=== PATIENT | female | born 1995 | race African-American/Black ===

== ENCOUNTER 2016-11-30 15:23 | Emergency (ER) | payer MEDICAID ==
[~2016-11-30] VITALS: Ht 175.3 cm; Wt 122.5 kg
[~2016-11-30 15:23] MED LIST: CYCLOBENZAPRINE10 MG ORAL; IBUPROFEN800 MG ORAL
--- NOTE | 2016-11-30 15:52 | Emergency Room Report ---
History of Present Illness General Chief Complaint: Flu Like Symptoms Source: Patient Present Illness HPI Patient is a 21-year-old female brought in by self for increased cough and nasal congestion. Patient gradual onset of symptoms were approximately one month. Patient denied any fever. She reported having some increased redness to her left eye beginning yesterday. 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 The patient been having some sore throat. She denied any leg pain or swelling. She reported having some right ear fullness. Allergies: Coded Allergies: SULFA (SULFONAMIDE ANTIBIOTICS) (Unverified Allergy, Unknown, 11/09/14) Patient History Past Medical History: see triage record Last Menstrual Period: nov 11, 2016 Now: No Reviewed Nursing Documentation: PMH: Agreed, PSxH: Agreed Nursing Documentation-PMH Past Medical History: No History, Except For Review of Systems All Other Systems: negative except mentioned in HPI Physical Exam Vital Signs Date Time Temp Pulse Resp B/P Pulse Ox O2 Delivery O2 Flow Rate FiO2 11/30/16 15:36 99.0 87 15 127/85 98 Room Air Sp02 EP Interpretation: reviewed, normal General Appearance: normal inspection, well appearing, no apparent distress, alert, GCS 15 Head: atraumatic Eyes: bilateral eye PERRL, bilateral eye other - left eye conjunctival injection ENT: normal ENT inspection, hearing grossly normal, normal voice Neck: normal inspection, full range of motion, supple, no bony tend Respiratory: normal inspection, lungs clear, normal breath sounds, no respiratory distress, no retraction, no wheezing Cardiovascular #1: regular rate, rhythm, no edema Gastrointestinal: normal inspection, normal bowel sounds, non tender, soft, no guarding, no hernia Genitourinary: no CVA tenderness Musculoskeletal: normal inspection, back normal, normal range of motion Neurologic: normal inspection, alert, oriented x3, responsive, 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 Patient's benign exam and does not appear to require any further imaging or laboratory testing at this time. The patient was advised to return off of work. The patient is to have a viral bronchitis. The patient does not appear to require antibiotics at this time . The patient is advised to follow up with primary care doctor in 1-2 days. Patient is advised to return if any worsening condition or if any changes in status that are concerning. Laboratory Tests Test 11/30/16 15:49 Urine Color Pale yellow Urine Appearance Clear Urine pH 5 (4.5-8.0) Urine Specific [place] 1.010 (1.005-1.035) Urine Protein Negative (NEGATIVE) Urine Glucose (UA) Negative (NEGATIVE) Urine Ketones Negative (NEGATIVE) Urine Occult Blood Negative (NEGATIVE) Urine Nitrite Negative (NEGATIVE) Urine Bilirubin Negative (NEGATIVE) Urine Urobilinogen Normal MG/DL (0.0-1.0) Urine Leukocyte Esterase Negative (NEGATIVE) Urine HCG, Qualitative Negative Last Vital Signs Date Time Temp Pulse Resp B/P Pulse Ox O2 Delivery O2 Flow Rate FiO2 11/30/16 15:36 99.0 87 15 127/85 98 Room Air Status: unchanged Disposition: HOME, SELF-CARE Condition: Stable Scripts Guaifenesin* (ADULT WAL-TUIN*) 100 Mg/5 Ml Liquid 5 ML ORAL Q4H, #120 ML Prov: Bereket Matthew 11/30/16 Dextran 70/Hypromellose (ARTIFICIAL TEARS EYE DROPS*) 15 Ml Drops 1 DROP LEFT EYE Q4HR, #15 ML 0 Refills Prov: Bereket Matthew 11/30/16 Loratadine (CLARITIN) 10 Mg Capsule 10 MG ORAL DAILY, #20 CAP Prov: Bereket Matthew 11/30/16 Bereket Matthew Nov 30, 2016 15:52
[2016-11-30 16:20] LABS: APPEARANCE,URINE CLEAR; KETONES,URINE NEGATIVE (NEGATIVE); LEUKOCYTE ESTERASE ,URINE NEGATIVE (NEGATIVE); NITRITE,URINE NEGATIVE (NEGATIVE); PH,URINE 5 (4.5-8.0); PROTEIN,URINE NEGATIVE (NEGATIVE); UROBILINOGEN,URINE NORMAL MG/DL (0.0-1.0)
[2016-11-30] MEDS ORDERED: ARTIFICIAL TEAR15 ML LEFT EYE (16:26)
[2016-11-30] MEDS ORDERED: ADULT WAL-100 MG/5 M ORAL (16:26)
[2016-11-30] MEDS ORDERED: CLARITIN10 M2 ORAL (16:26)
[2016-11-30 16:30] VITALS: BP 121/79
[2016-11-30 16:31] VITALS: BP 121/79
[2017-01-07] MEDS ORDERED: TYLENOL EXTRA500 MG ORAL (17:20)
== END 2016-11-30 16:32 | disposition home or self-care (01) ==
LOC: EMR 15:55
DX: J20.8 Acute bronchitis due to other specified organisms (principal); Z88.2 Allergy status to sulfonamides
CPT/HCPCS: 81003; 81025; 99284

== ENCOUNTER 2017-01-02 08:49 | Emergency (ER) | payer MEDICAID ==
[~2017-01-02] VITALS: Ht 175.3 cm; Wt 131.5 kg
[~2017-01-02 08:49] MED LIST changes: +ADULT WAL-100 MG/5 M ORAL; +ARTIFICIAL TEAR15 ML LEFT EYE; +CLARITIN10 M2 ORAL
[2017-01-02] MEDS ORDERED: NAPROSYN500 M1 ORAL (09:18)
[2017-01-02 09:39] VITALS: BP 124/76
[2017-01-02] MEDS ORDERED: CLINDAMYCIN HC300 MG ORAL (09:39)
[2017-01-02 09:45] VITALS: BP 124/76
--- NOTE | 2017-01-02 11:22 | Emergency Room Report ---
History of Present Illness General Chief Complaint: Skin Rash/Abscess Source: Patient Present Illness HPI 21 yo F presents to ED c/o pain/swelling to her perineal area x 3 days. states pain is throbbing, 8/10, non radiating. no other aggravating or relieving factors. Denies any fevers or chills. Denies drainage. Denies any vaginal discharge. Denies dysuria or hematuria. Denies any other associated symptoms Allergies: Coded Allergies: SULFA (SULFONAMIDE ANTIBIOTICS) (Unverified Allergy, Unknown, 11/09/14) Patient History Past Medical History: none Past Surgical History: none Pertinent Family History: none Social History: Denies: alcohol use, drug use, smoking Last Menstrual Period: Now: No : 0 Para: 0 Immunizations: UTD Reviewed Nursing Documentation: PMH: Agreed, PSxH: Agreed Review of Systems All Other Systems: negative except mentioned in HPI Physical Exam Vital Signs Date Time Temp Pulse Resp B/P Pulse Ox O2 Delivery O2 Flow Rate FiO2 01/02/17 09:13 98.8 87 16 124/76 100 Room Air Sp02 EP Interpretation: reviewed, normal General Appearance: no apparent distress, alert, GCS 15, non-toxic, obese Head: normocephalic Eyes: bilateral eye PERRL, bilateral eye normal inspection ENT: normal ENT inspection Neck: normal inspection Respiratory: normal inspection Cardiovascular #1: normal inspection Gastrointestinal: normal inspection Rectal: deferred Genitourinary: no CVA tenderness Musculoskeletal: normal inspection Neurologic: alert, oriented x3, responsive, motor strength/tone normal, sensory intact, speech normal Psychiatric: judgement/insight normal, memory normal, mood/affect normal, no suicidal/homicidal ideation Skin: other - induration/erythema to R lower buttock. no fluctuance. no discharge. Lymphatic: normal inspection Medical Decision Making Diagnostic Impression: Primary Impression: Perineal abscess ER Course Hospital Course 21-year-old F presents to ED s/p swelling pain to perineal area differential - abscess, cellulitis, fistula Clinical course Patient placed on stretcher. After initial history exam reveals a obese female in no acute distress. On exam (underwriting sales representative present) there is an area of induration and swelling to the right lower buttock close to the perineal area. No fluctuance. No discharge. I do not believe I and D indicated at this time; will treat conservatively with warm soaks and antibiotic Diagnosis - perineal abscess Stable and discharged to home with prescription for clindamycin. warm soaks tid. wound Care instructions given. Followup with PMD. Return to ED if any signs of infection develop Last Vital Signs Date Time Temp Pulse Resp B/P Pulse Ox O2 Delivery O2 Flow Rate FiO2 01/02/17 09:45 98.8 16 124/76 100 Room Air 01/02/17 09:13 87 Status: improved Disposition: HOME, SELF-CARE Condition: Stable Scripts Clindamycin Hcl (CLINDAMYCIN HCL) 300 Mg Capsule 300 MG ORAL THREE TIMES A DAY, #21 CAP Prov: GLORIA NOGUERA M.D. 01/02/17 Referrals: [facility],REF (PCP) Patient Instructions: Perianal Abscess Additional Instructions: warm soaks. take antibiotics as directed GLORIA NOGUERA M.D. Jan 02, 2017 11:22
[2017-01-07] MEDS ORDERED: TYLENOL EXTRA500 MG ORAL (17:20)
== END 2017-01-02 09:45 | disposition home or self-care (01) ==
LOC: EMR 09:30
DX: L02.215 Cutaneous abscess of perineum (principal); Z88.2 Allergy status to sulfonamides
CPT/HCPCS: 99283

== ENCOUNTER 2017-01-04 15:42 | Emergency (ER) | payer MEDICAID ==
[~2017-01-04] VITALS: Ht 175.3 cm; Wt 131.5 kg
[~2017-01-04 15:42] MED LIST changes: +CLINDAMYCIN HC300 MG ORAL; +NAPROSYN500 M1 ORAL
[2017-01-04 16:01] VITALS: BP 119/79
[2017-01-04] MEDS ORDERED: Morphine Sulfate 4mg/ml Inj IM ONE (16:15)
[2017-01-04] MEDS ORDERED: Morphine Sulfate 2mg/ml Inj IVP ONE (17:00)
[2017-01-04] MEDS ORDERED: VANCOMYCIN IVPB ONE (17:28)
[2017-01-04] MEDS ORDERED: [UNRECOGNIZED DRUG - OTHER] IVPB ONE (17:28)
[2017-01-04] MEDS ORDERED: Vancomycin 1.5 GM in D5W 325 ML IVPB SCH (17:30)
[2017-01-04 17:35] LABS: BASOPHILS % (AUTO) 1.2 % (0.0-2.0); EOSINOPHILS % (AUTO) 1.4 % (0.0-3.0); LYMPHOCYTES % (AUTO) 23.6 % (20.0-45.0); MEAN CORPUSCULAR HEMOGLOBIN 27.1 PG (27.0-31.0); MEAN CORPUSCULAR HGB CONC 32.3 G/DL (32.0-36.0); MEAN CORPUSCULAR VOLUME 84 FL (80-99); MEAN PLATELET VOLUME 9.8 FL (6.5-10.1); MONOCYTES % (AUTO) 6.7 % (1.0-10.0); PLATELET COUNT 184 K/UL (150-450); RED BLOOD COUNT 4.36 M/UL (4.20-5.40); RED CELL DISTRIBUTION WIDTH 13.4 % (11.6-14.8); WHITE BLOOD COUNT 10.5 K/UL (4.8-10.8)
[2017-01-04] MEDS ORDERED: Vancomycin 1gm inj IVPB ONE (17:37)
[2017-01-04 17:47] LABS: ANION GAP 13 (5-15); CARBON DIOXIDE 24 mEQ/L (20-30); CHLORIDE 102 mEQ/L (98-107); CREATININE 0.7 mg/dL (0.5-0.9); GLOMERULAR FILTRATION RATE > 60 mL/min (>60); HEMOLYSIS 0; SODIUM 139 mEQ/L (135-145)
[2017-01-04 18:01] VITALS: BP 111/70
[2017-01-04 20:15] VITALS: BP 115/68
--- NOTE | 2017-01-04 20:29 | Emergency Room Report ---
History of Present Illness General Chief Complaint: Skin Rash/Abscess Source: Patient (Dalila Griffin) Present Illness HPI 21-year-old female presents the emergency department complaining of that 10 in severity localized pain to the perianal region in addition to discharge and bleeding. Patient states she was seen here in the emergency department 3 days ago and diagnosed with an abscess. Patient states that she did not have incision and drainage performed as there was no pus palpated. Patient states that she was prescribed oral antibiotics for which she has been taking. Patient denies fevers or chills patient reports progressive pain and moderate amount of discharge from the rectal area. She denies abdominal pain constipation diarrhea or history of GI symptoms. Patient denies previous history of abscesses in the perirectal area. She denies history of immunocompromise. Patient reports history of Chlamydia over 4 years ago. Denies CP, Palpitations, LOC, AMS, dizziness, Changes in Vision, Sensation, paresthesias, or a sudden severe headache. (Dalila Griffin) Allergies: Coded Allergies: SULFA (SULFONAMIDE ANTIBIOTICS) (Unverified Allergy, Unknown, 11/09/14) Patient History Past Medical History: see triage record Past Surgical History: none Pertinent Family History: none Last Menstrual Period: 12/07/16 Now: No Immunizations: UTD Reviewed Nursing Documentation: PMH: Agreed, PSxH: Agreed (Dalila Griffin) Review of Systems All Other Systems: negative except mentioned in HPI (Dalila Griffin) Physical Exam Vital Signs Date Time Temp Pulse Resp B/P Pulse Ox O2 Delivery O2 Flow Rate FiO2 01/04/17 15:45 98.6 91 15 123/82 98 Room Air Sp02 EP Interpretation: reviewed, normal General Appearance: no apparent distress, alert, GCS 15, non-toxic Head: normocephalic, atraumatic Eyes: bilateral eye PERRL, bilateral eye normal inspection ENT: hearing grossly normal, normal pharynx, no angioedema, normal voice Neck: full range of motion, supple/symm/no masses Respiratory: lungs clear, normal breath sounds, speaking full sentences Cardiovascular #1: regular rate, rhythm, no edema Gastrointestinal: non tender, soft, no guarding, no rebound Rectal: deferred Musculoskeletal: back normal, gait/station normal, normal range of motion Neurologic: alert, oriented x3, responsive, motor strength/tone normal, sensory intact, speech normal Psychiatric: judgement/insight normal, memory normal, mood/affect normal, no suicidal/homicidal ideation Skin: no rash, warm/dry, well hydrated, other - erythema and significant TTP to the right lower perirectal area with drainage of bloody and purulent d/c from the lower medial right side of buttock. (Dalila Griffin) Medical Decision Making PA Attestation Dr. Starr is my supervising Physician whom patient management has been discussed with. (Dalila Griffin) Diagnostic Impression: Primary Impression: Gluteal abscess ER Course 21-year-old female presents the emergency department complaining of that 10 in severity localized pain to the perianal region in addition to discharge and bleeding. Patient states she was seen here in the emergency department 3 days ago and diagnosed with an abscess. Patient states that she did not have incision and drainage performed as there was no pus palpated. Patient states that she was prescribed oral antibiotics for which she has been taking. Patient denies fevers or chills patient reports progressive pain and moderate amount of discharge from the rectal area. She denies abdominal pain constipation diarrhea or history of GI symptoms. Patient denies previous history of abscesses in the perirectal area. She denies history of immunocompromise. Patient reports history of Chlamydia over 4 years ago. Ddx considered but are not limited to cellulitis, abscess, cystic acne, fistula , necrotizing fasciitis. Vital signs: are WNL, pt. is afebrile H&PE are most consistent with Draining abscess, will r/o fistula and do basic lab work to evaluate spread of infection. ORDERS: -CBC: unremarkable -BMP : electrolytes ok, good renal function - Urine Hcg: Negative -CT Abdomen and Pelvis: no evidence of fistula or lior-rectal abscess, study is limited, normal appendix , no free air per preliminary radiology report by Dr. Terrazas-Radiologist. ED INTERVENTIONS: -4mg Morphine IM -2mg Morphine IV -1.5 Gram Vancomycin IV Pt. declines wound packing which was highly recommended to her, d/w pt. that she needs to facilitate continued drainage by hot compresses and sitz baths. DISCHARGE: At this time pt. is stable for d/c to home. Will provide printed patient care instructions, and any necessary prescriptions. Care plan and follow up instructions have been discussed with the patient prior to discharge. Labs Test 01/04/17 16:53 White Blood Count 10.5 K/UL (4.8-10.8) Red Blood Count 4.36 M/UL (4.20-5.40) Hemoglobin 11.8 G/DL (12.0-16.0) Hematocrit 36.7 % (37.0-47.0) Mean Corpuscular Volume 84 FL (80-99) Mean Corpuscular Hemoglobin 27.1 PG (27.0-31.0) Mean Corpuscular Hemoglobin Concent 32.3 G/DL (32.0-36.0) Red Cell Distribution Width 13.4 % (11.6-14.8) Platelet Count 184 K/UL (150-450) Mean Platelet Volume 9.8 FL (6.5-10.1) Neutrophils (%) (Auto) 67.0 % (45.0-75.0) Lymphocytes (%) (Auto) 23.6 % (20.0-45.0) Monocytes (%) (Auto) 6.7 % (1.0-10.0) Eosinophils (%) (Auto) 1.4 % (0.0-3.0) Basophils (%) (Auto) 1.2 % (0.0-2.0) Urine HCG, Qualitative Negative Sodium Level 139 mEQ/L (135-145) Potassium Level 4.0 mEQ/L (3.4-4.9) Chloride Level 102 mEQ/L (98-107) Carbon Dioxide Level 24 mEQ/L (20-30) Anion Gap 13 (5-15) Blood Urea Nitrogen 10 mg/dL (7-23) Creatinine 0.7 mg/dL (0.5-0.9) Estimat Glomerular Filtration Rate > 60 mL/min (>60) Glucose Level 84 mg/dL (74-106) Calcium Level 9.0 mg/dL (8.6-10.2) (Dalila Griffin) ER Course I examined this patient. We offered to place a drain but she refused. As the abscess is draining, we will treat with antibiotics and follow. (Matteo Starr M.D.) Last Vital Signs Date Time Temp Pulse Resp B/P Pulse Ox O2 Delivery O2 Flow Rate FiO2 01/04/17 20:15 98.2 79 15 115/68 100 Room Air (Dalila Griffin) Disposition: HOME, SELF-CARE Condition: Stable Scripts Ibuprofen* (MOTRIN*) 600 Mg Tablet 600 MG ORAL THREE TIMES A DAY, #30 TAB 0 Refills Prov: Dalila Griffin 01/04/17 Hydrocodone Bit/Acetaminophen 7.5-325* (NORCO 7.5-325*) 1 Each Tablet 1 TAB ORAL Q6H Y for For Pain, #10 TAB 0 Refills Prov: Dalila Griffin 01/04/17 Referrals: [facility],REF (PCP) Patient Instructions: Abscess Additional Instructions: Take medications as directed. Follow up with PCP in 3-5 days Return sooner to ED if new symptoms occur, or current symptoms become worse. Do not drink alcohol, drive, or operate heavy machinery while taking [place] as this may cause drowsiness. - Please note that this Emergency Department Report was dictated using [employer] architect technology software, occasionally this can lead to erroneous entry secondary to interpretation by the dictation equipment. Dalila Griffin Jan 04, 2017 20:29 Matteo Starr M.D. Jan 07, 2017 15:09
[2017-01-04] MEDS ORDERED: IBUPROFEN600 MG ORAL (21:05)
[2017-01-04] MEDS ORDERED: NORCO 7.5-3251 EACH ORAL (21:05)
[2017-01-04 21:18] VITALS: BP 110/65
--- NOTE | 2017-01-06 08:36 | Diagnostic Imaging Report ---
CT Abdomen/Pelvis with Intravenous Contrast INDICATION: Pain. Concern for abscess. Comparison: None available. Technique: Utilizing a multislice CT scanner, a CT of the abdomen and pelvis was performed after administration of intravenous contrast. All CT scans at this facility use dose modulation, iterative reconstruction, and/or weight based dosing when appropriate to reduce radiation dose to as low as reasonably achievable. CTDIvol (mGy): 19 DLP (mGy-cm): 1301 Findings: The visualized lung bases are clear. The liver is unremarkable. The gallbladder is unremarkable. The pancreas, spleen and adrenal glands are unremarkable. No calculus is identified within either kidney, along the expected course of the ureters or within the urinary bladder. There is no evidence of hydronephrosis or asymmetric perirenal inflammatory change. The urinary bladder is grossly unremarkable. A 2 cm right ovarian cyst is suspected. The pelvic organs are otherwise grossly unremarkable. No evidence of acute appendicitis. The visualized bowel are grossly unremarkable. There is no evidence of obstruction. There is no extraluminal gas or fluid. There is heterogeneous appearance of the right perineal region with a 3.3 x 2.1 cm region of low attenuation in the subcutaneous fat suspicious for phlegmonous reaction or small abscess formation. No drainable fluid collection is identified. This examination is not optimal for evaluation of fistula formation. Please correlate with history and physical exam findings. There are no enlarged lymph nodes. There is no significant calcified atherosclerotic disease of the the abdominal aorta. The osseous structures are unremarkable. Impression: Heterogeneous appearance of the right perineal region with a 3.3 x 2.1 cm region of low attenuation and inflammatory stranding in the subcutaneous fat, suspicious for phlegmonous reaction or small abscess formation. No drainable fluid collection is identified. This examination is not optimal for evaluation of fistula formation. Please correlate with history and physical exam findings.\H\ \N\
[2017-01-07] MEDS ORDERED: TYLENOL EXTRA500 MG ORAL (17:20)
== END 2017-01-04 21:18 | disposition home or self-care (01) ==
LOC: EMR 16:19
DX: L02.31 Cutaneous abscess of buttock (principal); Z88.2 Allergy status to sulfonamides
CPT/HCPCS: 36415; 74177; 80048; 81025; 85025; 96360; 96361; 96372; 96374; 99284; J2270; J3370; Q9967

== ENCOUNTER 2017-03-16 11:00 | Emergency (ER) | payer MEDICAID ==
[~2017-03-16] VITALS: Ht 175.3 cm; Wt 122.5 kg
[~2017-03-16 11:00] MED LIST changes: +IBUPROFEN600 MG ORAL; +NORCO 7.5-3251 EACH ORAL; +TYLENOL EXTRA500 MG ORAL
[2017-03-16 11:19] VITALS: BP 106/60
[2017-03-16 11:33] VITALS: BP 106/60
--- NOTE | 2017-03-16 11:59 | Emergency Room Report ---
History of Present Illness General Chief Complaint: General Complaint Source: Patient Present Illness HPI 22YOF walk-in requesting work note to "clear" her for return to work today. States was here previously for "abscess between my legs." Feels well, healed. No complaints. Denies fever/chills, chest pain, SOB, abd pain, urinary complaints. Allergies: Coded Allergies: SULFA (SULFONAMIDE ANTIBIOTICS) (Unverified Allergy, Unknown, 11/09/14) Patient History Past Medical History: other - sickle cell trait Past Surgical History: none Pertinent Family History: none Social History: Denies: alcohol use, drug use, smoking Last Menstrual Period: 03/13/17 Now: No Immunizations: UTD Reviewed Nursing Documentation: PMH: Agreed, PSxH: Agreed Nursing Documentation-PMH Past Medical History: No History, Except For Review of Systems All Other Systems: negative except mentioned in HPI Physical Exam Vital Signs Date Time Temp Pulse Resp B/P Pulse Ox O2 Delivery O2 Flow Rate FiO2 03/16/17 11:06 98.1 75 14 106/60 96 Room Air Sp02 EP Interpretation: reviewed, normal General Appearance: normal inspection, well appearing, no apparent distress, alert Head: atraumatic ENT: normal ENT inspection, hearing grossly normal, normal voice Neck: normal inspection, full range of motion, supple, no bony tend Respiratory: normal inspection, lungs clear, normal breath sounds, no respiratory distress, no retraction, no wheezing Cardiovascular #1: regular rate, rhythm, no edema Gastrointestinal: normal inspection, normal bowel sounds, non tender, soft, no guarding, no hernia Genitourinary: no CVA tenderness Musculoskeletal: normal inspection, back normal, normal range of motion, Mojgan' s Sign negative Neurologic: normal inspection, alert, oriented x3, responsive, application software engineer III-XII nml as tested, motor strength/tone normal, speech normal Psychiatric: normal inspection, judgement/insight normal, mood/affect normal Skin: normal inspection, normal color, no rash Lymphatic: normal inspection Medical Decision Making Diagnostic Impression: Primary Impression: Encounter for generalized patient complaints ER Course Work clearance note provided as requested Last Vital Signs Date Time Temp Pulse Resp B/P Pulse Ox O2 Delivery O2 Flow Rate FiO2 03/16/17 11:33 98.1 76 14 106/60 96 Room Air Status: improved Disposition: HOME, SELF-CARE Condition: Improved Referrals: [facility],REF (PCP) Patient Instructions: Medical Screening Exam Additional Instructions: MEDICALLY CLEARED TO RETURN TO WORK TODAY, 03/16/17 SAMANTHA BARTHOLOMEW M.D. Mar 16, 2017 11:59
== END 2017-03-16 11:58 | disposition home or self-care (01) ==
LOC: EMR 11:15
DX: Z09 Encounter for follow-up examination after completed treatment for conditions other than malignant neoplasm (principal); Z88.2 Allergy status to sulfonamides
CPT/HCPCS: 99282

== ENCOUNTER 2017-04-13 00:49 | Emergency (ER) | payer MEDICAID ==
[~2017-04-13] VITALS: Ht 175.3 cm; Wt 122.5 kg
[2017-04-13] MEDS ORDERED: Fleet's Enema 133ml RECTAL ONE (01:15)
--- NOTE | 2017-04-13 01:27 | Emergency Room Report ---
History of Present Illness General Chief Complaint: Constipation Source: Patient Present Illness HPI This is a 22-year-old female with no past medical history. She presents with chief complaint of constipation. Has been ongoing for about 2 weeks. Very hard small stool. No abdominal pain. No fever chills but no nausea no vomiting. She has a second complaint which vaginal itching. Has been ongoing for last couple weeks. Worse with urination. No discharge. Allergies: Coded Allergies: SULFA (SULFONAMIDE ANTIBIOTICS) (Unverified Allergy, Unknown, 11/09/14) Patient History Past Medical History: see triage record, old chart reviewed Past Surgical History: other Pertinent Family History: none Last Menstrual Period: 03/06/17 Now: Yes - Possible Immunizations: other Reviewed Nursing Documentation: PMH: Agreed, PSxH: Agreed Nursing Documentation-PMH Past Medical History: No History, Except For Review of Systems Eye: Denies: blurred vision, eye pain ENT: Denies: ear pain, nose congestion, throat swelling Respiratory: Denies: cough, shortness of breath Cardiovascular: Denies: chest pain, palpitations Gastrointestinal: Denies: abdominal pain, diarrhea, nausea, vomiting Musculoskeletal: Denies: back pain, joint pain Skin: Denies: rash Neurological: Denies: headache, numbness Endocrine: Denies: increased thirst, increased urine Hematologic/Lymphatic: Denies: easy bruising All Other Systems: negative except mentioned in HPI Physical Exam Vital Signs Date Time Temp Pulse Resp B/P Pulse Ox O2 Delivery O2 Flow Rate FiO2 04/13/17 00:53 98.1 98 16 111/80 100 Room Air vital normal Sp02 EP Interpretation: reviewed, normal General Appearance: well appearing, no apparent distress, alert Head: normocephalic, atraumatic Eyes: bilateral eye EOMI, bilateral eye PERRL ENT: hearing grossly normal, normal pharynx Neck: full range of motion, supple, no meningismus Respiratory: chest non-tender, lungs clear, normal breath sounds Cardiovascular #1: regular rate, rhythm, no murmur Gastrointestinal: normal bowel sounds, non tender, no mass, no organomegaly, no bruit, non-distended Musculoskeletal: back normal, gait/station normal, normal range of motion Psychiatric: mood/affect normal Skin: warm/dry Medical Decision Making Diagnostic Impression: Primary Impression: Constipation Qualified Codes: K59.00 - Constipation, unspecified Additional Impression: UTI (urinary tract infection) Qualified Codes: N30.00 - Acute cystitis without hematuria ER Course Patient presents with 2 issues. She has UTI/possible cervicitis/vaginitis. We' ll put on antibiotics. No evidence of ectopic. Not . Also with constipation. No choking. We'll discharge home. Last Vital Signs Date Time Temp Pulse Resp B/P Pulse Ox O2 Delivery O2 Flow Rate FiO2 04/13/17 00:53 98.1 98 16 111/80 100 Room Air Status: improved Disposition: HOME, SELF-CARE Condition: Stable Scripts Doxycycline Monohydrate* (DOXYCYCLINE MONOHYDRATE*) 100 Mg Capsule 100 MG ORAL Q12H, #14 CAP 0 Refills Prov: ARTIS PARSON M.D. 04/13/17 Lactulose (LACTULOSE*) 20 Gm/30 Ml Solution 30 ML ORAL DAILY, #210 ML 0 Refills Prov: ARTIS PARSON M.D. 04/13/17 Referrals: [facility]/,REFERRING (PCP) Patient Instructions: Constipation, Adult Additional Instructions: Followup with your DrFreddie in 2 to 3 days return if symptom worsen. ARTIS PARSON M.D. Apr 13, 2017 01:27
[2017-04-13 02:42] LABS: APPEARANCE,URINE CLEAR; KETONES,URINE NEGATIVE (NEGATIVE); LEUKOCYTE ESTERASE ,URINE 3+ (NEGATIVE); NITRITE,URINE NEGATIVE (NEGATIVE); PH,URINE 5 (4.5-8.0); PROTEIN,URINE NEGATIVE (NEGATIVE); UROBILINOGEN,URINE NORMAL MG/DL (0.0-1.0)
[2017-04-13] MEDS ORDERED: LACTULOSE20 GM/301 ORAL (02:50)
[2017-04-13] MEDS ORDERED: DOXYCYCLINE MO100 MG ORAL (02:50)
[2017-04-13 02:52] LABS: BACTERIA,URINE FEW /HPF; RBC,URINE 0-2 /HPF (0 - 2); SQUAMOUS EPITHELIAL CELL,UR FEW /LPF (NONE/OCC)
[2017-04-13 02:54] VITALS: BP 120/88
== END 2017-04-13 02:57 | disposition home or self-care (01) ==
LOC: EMR 01:22
DX: K59.00 Constipation, unspecified (principal); N30.00 Acute cystitis without hematuria; Z88.2 Allergy status to sulfonamides
CPT/HCPCS: 81003; 81025; 99284

== ENCOUNTER 2017-10-15 17:07 | Emergency (ER) | payer MEDICAID ==
[~2017-10-15] VITALS: Ht 175.3 cm; Wt 136.1 kg
[~2017-10-15 17:07] MED LIST changes: +DOXYCYCLINE MO100 MG ORAL; +LACTULOSE20 GM/301 ORAL
[2017-10-15 18:16] VITALS: BP 108/73
[2017-10-15 18:45] VITALS: BP 108/73
[2017-10-15] MEDS ORDERED: Ketorolac 60mg Inj IM ONE (18:45)
[2017-10-15] MEDS ORDERED: IBUPROFEN600 MG ORAL (18:47)
[2017-10-15] MEDS ORDERED: ROBAXIN-750750 MG PO (18:47)
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
== END 2017-10-15 19:00 | disposition home or self-care (01) ==
LOC: EMR 18:05
DX: T14.8XXA Other injury of unspecified body region, initial encounter (principal); V49.9XXA Car occupant (driver) (passenger) injured in unspecified traffic accident, initial encounter; Y92.410 Unspecified street and highway as the place of occurrence of the external cause
CPT/HCPCS: 96372; 99283

== ENCOUNTER 2018-01-07 21:23 | Emergency (ER) | payer MEDICAID ==
[~2018-01-07] VITALS: Ht 175.3 cm; Wt 133.4 kg
[~2018-01-07 21:23] MED LIST changes: +ROBAXIN-750750 MG PO
[2018-01-07 21:40] VITALS: BP 115/77
[2018-01-07] MEDS ORDERED: AMOXICILLIN500 MG ORAL (21:53)
--- NOTE | 2018-01-07 21:56 | Emergency Room Report ---
History of Present Illness General Chief Complaint: Sore Throat Source: Patient Present Illness HPI 22-year-old female presents with sore throat for 3 days. States sore throat, +mild dry cough. Pain with swallowing however has still been able to eat/drink. No change in voice. No pain with extension/movement of neck. Denies fever or chills. No sick contacts. Allergies: Coded Allergies: SULFA (SULFONAMIDE ANTIBIOTICS) (Unverified Allergy, Unknown, 11/09/14) Patient History Past Medical History: see triage record Past Surgical History: none Pertinent Family History: none Last Menstrual Period: Nov 22 Now: No Reviewed Nursing Documentation: PMH: Agreed; PSxH: Agreed Review of Systems All Other Systems: negative except mentioned in HPI Physical Exam Vital Signs Date Time Temp Pulse Resp B/P (MAP) Pulse Ox O2 Delivery O2 Flow Rate FiO2 01/07/18 21:28 98.7 97 18 115/77 99 Room Air 98.8 Sp02 EP Interpretation: reviewed, normal General Appearance: normal inspection, well appearing, no apparent distress, alert, GCS 15, non-toxic Head: normocephalic, atraumatic Eyes: bilateral eye normal inspection, bilateral eye PERRL, bilateral eye EOMI ENT: uvula midline, tonsillar swelling, pharyngeal erythema, tonsillar exudate Neck: normal inspection, full range of motion, supple Respiratory: normal inspection, lungs clear, normal breath sounds, no respiratory distress, no retraction, no wheezing, speaking full sentences, chest symmetrical Cardiovascular #1: normal inspection, regular rate, rhythm, no edema, normal capillary refill Cardiovascular #2: 2+ radial (R), 2+ radial (L) Gastrointestinal: normal inspection, non tender, soft, non-distended, no guarding Musculoskeletal: normal inspection, back normal, normal range of motion, non- tender Neurologic: normal inspection, alert, oriented x3, responsive, motor strength/ tone normal, sensory intact, normal gait, speech normal Psychiatric: normal inspection, judgement/insight normal, memory normal Skin: normal inspection, normal color, no rash, warm/dry, well hydrated, normal turgor Medical Decision Making Diagnostic Impression: Primary Impression: Tonsillitis ER Course 22-year-old female with sore throat DDX: Viral vs. infectious mononucleosis vs. bacterial pharyngitis vs. allergies Other serious causes such as DIRECTOR OF PEDIATRIC REHABILITATION / RPA / deep space neck infection history/physical most consistent with bacterial Plan: Motrin amoxicillin ER course: Patient remains stable in ED. Pt states improvement of pain with motrin. Disposition: Patient will be discharged to home with antibiotics. Patient will follow up with primary care doctor within 5 days. Strict return precautions discussed with patient such as worsening throat pain/swelling, dysphagia, high fever or chills, shortness of breath, abdominal pain, which may indicate severe illness. Patient verbalized understanding and agreed with plan. Please note that this Emergency Department Report was dictated using Living [employer] technician technology software, occasionally this can lead to erroneous entry secondary to interpretation by the dictation equipment. Last Vital Signs Date Time Temp Pulse Resp B/P (MAP) Pulse Ox O2 Delivery O2 Flow Rate FiO2 01/07/18 21:28 98.7 97 18 115/77 99 Room Air 98.8 Disposition: HOME, SELF-CARE Condition: Improved Scripts Amoxicillin* (AMOXIL*) 500 Mg Capsule 500 MG ORAL EVERY 8 HOURS for 7 Days, #21 CAP 0 Refills Prov: Jesus Rg M.D. 01/07/18 Patient Instructions: Tonsillitis Jesus Rg M.D. Jan 07, 2018 21:56
[2018-01-07 22:10] VITALS: BP 115/77
== END 2018-01-07 22:10 | disposition home or self-care (01) ==
LOC: EMR 21:42
DX: J03.90 Acute tonsillitis, unspecified (principal); Z88.2 Allergy status to sulfonamides
CPT/HCPCS: 99283

== ENCOUNTER 2018-05-12 23:48 | Emergency (ER) | payer MEDICAID ==
[~2018-05-12] VITALS: Ht 175.3 cm; Wt 136.1 kg
[~2018-05-12 23:48] MED LIST changes: +AMOXICILLIN500 MG ORAL
[2018-05-13 00:11] VITALS: BP 120/78
--- NOTE | 2018-05-13 00:26 | Emergency Room Report ---
History of Present Illness General Chief Complaint: Abdominal Pain Source: Patient Present Illness HPI Is a 23-year-old female who has no past medical history. She presents with chief complaint of pelvic cramping. Also dysuria and frequency. Not sexually active. No discharge or vaginal bleeding. No fever chills but no nausea no vomiting per no back pain. Pain is 8 out of 10. Worse with urination. Allergies: Coded Allergies: SULFA (SULFONAMIDE ANTIBIOTICS) (Unverified Allergy, Unknown, 11/09/14) Patient History Past Medical History: none, see triage record, old chart reviewed Past Surgical History: none Pertinent Family History: none Social History: Denies: smoking Last Menstrual Period: 3 weeks ago Now: No Immunizations: other Reviewed Nursing Documentation: PMH: Agreed; PSxH: Agreed Review of Systems Eye: Denies: eye pain, blurred vision ENT: Denies: ear pain, nose congestion, throat swelling Respiratory: Denies: cough, shortness of breath Cardiovascular: Denies: chest pain, palpitations Gastrointestinal: Denies: abdominal pain, diarrhea, nausea, vomiting Genitourinary: Reports: dysuria, frequency Musculoskeletal: Denies: back pain, joint pain Skin: Denies: rash Neurological: Denies: headache, numbness Endocrine: Denies: increased thirst, increased urine Hematologic/Lymphatic: Denies: easy bruising All Other Systems: negative except mentioned in HPI Physical Exam Vital Signs Date Time Temp Pulse Resp B/P (MAP) Pulse Ox O2 Delivery O2 Flow Rate FiO2 05/12/18 23:57 98.6 90 16 121/82 98 Room Air 98.6 vitals normal Sp02 EP Interpretation: reviewed, normal General Appearance: well appearing, no apparent distress, alert, obese Head: normocephalic, atraumatic Eyes: bilateral eye PERRL, bilateral eye EOMI ENT: hearing grossly normal, normal pharynx Neck: full range of motion, supple, no meningismus Respiratory: chest non-tender, lungs clear, normal breath sounds Cardiovascular #1: regular rate, rhythm, no murmur Gastrointestinal: normal bowel sounds, non tender, no mass, no organomegaly, no bruit, non-distended Musculoskeletal: back normal, gait/station normal, normal range of motion Psychiatric: mood/affect normal Skin: warm/dry Medical Decision Making Diagnostic Impression: Primary Impression: UTI (urinary tract infection) Qualified Codes: N30.00 - Acute cystitis without hematuria ER Course Patient presents with symptoms consistent with UTI. No evidence of pyelonephritis or acute abdomen. No evidence of ectopic. We'll discharge home. Last Vital Signs Date Time Temp Pulse Resp B/P (MAP) Pulse Ox O2 Delivery O2 Flow Rate FiO2 05/13/18 00:11 97.8 74 18 120/78 98 Room Air 97.8 Status: improved Disposition: HOME, SELF-CARE Condition: Stable Scripts Cephalexin* (KEFLEX*) 500 Mg Capsule 500 MG ORAL TID, #21 CAP Prov: ARTIS PARSON M.D. 05/13/18 Referrals: NON PHYSICIAN (PCP) Additional Instructions: Follow-up your doctor in 3-5 days. Return if worse. ARTIS PARSON M.D. May 13, 2018 00:26
[2018-05-13 00:33] LABS: BILIRUBIN, URINE NEGATIVE (NEGATIVE); GLUCOSE, URINE (UA) NEGATIVE (NEGATIVE); NITRITE,URINE NEGATIVE (NEGATIVE)
[2018-05-13 00:37] LABS: COLOR,URINE PALE YELLOW; KETONES,URINE NEGATIVE (NEGATIVE); LEUKOCYTE ESTERASE ,URINE 2+ (NEGATIVE); PH,URINE 6 (4.5-8.0); PROTEIN,URINE NEGATIVE (NEGATIVE); UROBILINOGEN,URINE NORMAL MG/DL (0.0-1.0)
[2018-05-13 00:43] LABS: APPEARANCE,URINE SLIGHTLY CLOUDY
[2018-05-13] MEDS ORDERED: CEPHALEXIN500 MG ORAL (00:55)
[2018-05-13 01:00] VITALS: BP 122/76
[2018-05-13] MEDS ORDERED: Cephalexin 500mg cap ORAL ONE (01:00)
[2018-05-13 01:07] VITALS: BP 120/78
== END 2018-05-13 01:08 | disposition home or self-care (01) ==
LOC: EMR 05-13 00:23
DX: N30.00 Acute cystitis without hematuria (principal); Z88.2 Allergy status to sulfonamides
CPT/HCPCS: 81003; 81025; 87086; 99283

== ENCOUNTER 2019-06-13 20:24 | Emergency (ER) | payer MEDICAID ==
[~2019-06-13] VITALS: Ht 175.3 cm; Wt 143.8 kg
[~2019-06-13 20:24] MED LIST changes: +CEPHALEXIN500 MG ORAL
[2019-06-13] MEDS ORDERED: NKM (20:45)
--- NOTE | 2019-06-13 21:16 | Emergency Room Report ---
History of Present Illness General Chief Complaint: Sore Throat Source: Patient Present Illness HPI Patient presents with tenderness and swelling under her right jaw. This is been developing over the last 5 days. The pain is severe at this time and she is unable to sleep. She denies difficulty swallowing. The pain is constant and radiates up into her head on the right-hand side. There is no neck stiffness. She denies any productive cough. There is no nausea vomiting or diarrhea. There is no skin rash. Is no change in hearing. She denies dental or gum problems. She is not at this time. 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 Last Menstrual Period: 05/24/19 Now: No Reviewed Nursing Documentation: PMH: Agreed; PSxH: Agreed Nursing Documentation-PMH Past Medical History: No History, Except For Review of Systems Constitutional: Denies: sweats, fever Eye: Denies: eye pain ENT: Reports: see HPI Respiratory: Reports: see HPI Cardiovascular: Denies: chest pain Gastrointestinal: Denies: abdominal pain, nausea, vomiting Genitourinary: Reports: see HPI; Denies: dysuria Skin: Reports: see HPI Neurological: Reports: see HPI Hematologic/Lymphatic: Reports: see HPI Physical Exam Vital Signs Date Time Temp Pulse Resp B/P (MAP) Pulse Ox O2 Delivery O2 Flow Rate FiO2 06/13/19 20:42 98.4 88 22 131/90 (104) 98 Room Air Sp02 EP Interpretation: reviewed, normal General Appearance: well appearing, no apparent distress, GCS 15 Head: normocephalic, atraumatic Eyes: bilateral eye normal inspection, bilateral eye PERRL ENT: hearing grossly normal, normal pharynx, no angioedema, normal voice, TMs + canals normal, moist mucus membranes Neck: full range of motion, supple, thyroid normal, other - See lymphatics Respiratory: chest non-tender, lungs clear, normal breath sounds Cardiovascular #1: regular rate, rhythm Cardiovascular #2: 2+ radial (R) Gastrointestinal: normal inspection Musculoskeletal: gait/station normal Neurologic: alert, oriented x3, grossly normal Psychiatric: mood/affect normal Skin: normal color, no rash Lymphatic: adenopathy - Right submandibular tender lymph node hard to size mobile Medical Decision Making Diagnostic Impression: Primary Impression: Lymphadenitis ER Course Patient presents with tenderness below her jaw and her neck on the right-hand side developing over 5 days. Differential includes salivary gland stone, lymphadenitis, viral syndrome amongst others. There is no evidence of dental abscess at this time. Antibiotics and analgesics are indicated. No laboratory is indicated at this time. Discussed with patient treatment plan. She was advised to follow-up with her doctors. Consideration that if this is worsening CT of the neck and labs may be indicated. Patient stable for outpatient observation and treatment. Last Vital Signs Date Time Temp Pulse Resp B/P (MAP) Pulse Ox O2 Delivery O2 Flow Rate FiO2 06/13/19 21:42 98.4 22 131/90 98 Room Air 06/13/19 20:42 88 Status: improved Disposition: HOME, SELF-CARE Condition: Improved Scripts Hydrocodone Bit/Acetaminophen 5-325* (NORCO 5-325*) 1 Each Tablet 1 TAB ORAL Q6H PRN for For Pain, #6 TAB 0 Refills Prov: Matteo Starr MD 06/13/19 Ibuprofen* (MOTRIN*) 600 Mg Tablet 600 MG ORAL Q6H PRN for For Pain, #20 TAB 0 Refills Prov: Matteo Starr MD 06/13/19 Ondansetron Odt* (ZOFRAN ODT*) 4 Mg Tab.rapdis 4 MG BC EVERY 8 HOURS, #6 TAB 0 Refills Prov: Matteo Starr MD 06/13/19 Amoxicillin* (AMOXIL*) 500 Mg Capsule 500 MG ORAL THREE TIMES A DAY, #21 CAP Prov: Matteo Starr MD 06/13/19 Matteo Starr MD Jun 13, 2019 21:16
[2019-06-13] MEDS ORDERED: AMOXICILLIN500 MG ORAL (21:18)
[2019-06-13] MEDS ORDERED: ONDANSETRON ODT4 MG BC (21:18)
[2019-06-13] MEDS ORDERED: IBUPROFEN600 MG ORAL (21:18)
--- NOTE | 2019-06-13 21:40 | NUR ---
patient asked for stronger medication for sleep. notified-new prescription given-Tunica.
[2019-06-13] MEDS ORDERED: NORCO 5-325 TA1 EACH ORAL (21:41)
[2019-06-13 21:42] VITALS: BP 131/90
== END 2019-06-13 21:35 | disposition home or self-care (01) ==
LOC: EMR 21:18
DX: I88.9 Nonspecific lymphadenitis, unspecified (principal); Z88.2 Allergy status to sulfonamides
CPT/HCPCS: 99282

== ENCOUNTER 2020-03-21 10:03 | Emergency (ER) | payer MEDICAID ==
[~2020-03-21] VITALS: Ht 172.7 cm; Wt 148.8 kg
[~2020-03-21 10:03] MED LIST changes: +NKM; +NORCO 5-325 TA1 EACH ORAL; +ONDANSETRON ODT4 MG BC
[2020-03-21 10:22] VITALS: BP 122/83
[2020-03-21] MEDS ORDERED: Acetaminophen 500mg (ES) tab ORAL ONE (10:30)
--- NOTE | 2020-03-21 10:31 | NUR ---
ED Nurse Note: Patient walked in to ER due to fall, that happened at 03/07/2020. Patient c/o lower back pain aince then. Patient presented calm, cooperative, AAO x4, vss at this time, was able ambulate with steady gait.
--- NOTE | 2020-03-21 11:38 | Diagnostic Imaging Report ---
Indication: Sacral and coccygeal pain status post fall on March 07 Technique: 3 views of the sacrum and coccyx Comparison: none Findings: No acute fractures. Sacral arches are preserved. Sacral iliac joint spaces are preserved. No radiopaque foreign body Impression: Negative
--- NOTE | 2020-03-21 11:39 | Diagnostic Imaging Report ---
Indication: Back and coccygeal pain, status post fall on March 07 Technique: 3 views of the lumbar spine Comparison: None Findings:Bony alignment is normal. Vertebral body heights are preserved. Disc spaces are preserved. No acute fractures. No dislocations. Pedicles are intact. Soft tissues are unremarkable Impression: Negative
[2020-03-21] MEDS ORDERED: TYLENOL EXTRA500 MG ORAL (12:02)
[2020-03-21] MEDS ORDERED: LIDODERM700 M1 TOPIC (12:02)
[2020-03-21 12:10] VITALS: BP 122/83
--- NOTE | 2020-03-21 12:11 | NUR ---
ED Nurse Note: Pt cleared by health care Provider for discharge. DC instructions/prescription was given and explained to pt and verbalized understanding of teachings. All medical deviecs such as ID band removed. Pt is AAO x4, ambulatory and left with all personal belongings.
--- NOTE | 2020-03-21 14:28 | Emergency Room Report ---
History of Present Illness General Chief Complaint: Multiple Trauma/Fall Source: Patient Present Illness HPI 25-year-old female presents for back pain. States that on 03/07 she tripped and fell and landed on her lower back. States she has been having pain to her tailbone since. Dull, 6 out of 10, nonradiating. Denies any other injuries. No other aggravating relieving factors. 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 Patient History Past Medical History: none Past Surgical History: none Pertinent Family History: none Social History: Denies: smoking, alcohol use, drug use Last Menstrual Period: 02/19/20 Now: No Immunizations: UTD Reviewed Nursing Documentation: PMH: Agreed; PSxH: Agreed Review of Systems All Other Systems: negative except mentioned in HPI Physical Exam Vital Signs Date Time Temp Pulse Resp B/P (MAP) Pulse Ox O2 Delivery O2 Flow Rate FiO2 03/21/20 10:15 98.6 93 15 122/83 (96) 98 Room Air Sp02 EP Interpretation: reviewed, normal General Appearance: no apparent distress, alert, GCS 15, non-toxic, obese Head: normocephalic Eyes: bilateral eye normal inspection, bilateral eye PERRL ENT: normal ENT inspection Neck: normal inspection Respiratory: normal inspection Cardiovascular #1: normal inspection Gastrointestinal: normal inspection Rectal: deferred Genitourinary: no CVA tenderness, vertebral tenderness Musculoskeletal: back normal, normal range of motion, gait/station normal Neurologic: alert, motor strength/tone normal, oriented x3, sensory intact, responsive, speech normal Psychiatric: normal inspection Skin: no rash Lymphatic: normal inspection Medical Decision Making Diagnostic Impression: Primary Impression: Coccyx contusion Qualified Codes: S30.0XXA - Contusion of lower back and pelvis, initial encounter ER Course Hospital Course 25 yo F presents with lower back pain s/p fall Differential diagnoses include: Fracture, dislocation, sprain, contusion Clinical course Patient placed on stretcher. After initial history and physical, I ordered pain medications and Xrays Xrays read shows no acute fracture/dislocation. I discussed findings with patient. Likely contusion. Pain improved after medications. Safe for discharge for close outpatient follow-up. I will provide referrals Diagnosis - coccyx contusion Stable and discharged to home with prescription for Tylenol, Lidoderm. weight bear as tolerated. Followup with PMD. Return to ED if symptoms recur or worsen Other X-Ray Diagnostic Results Other X-Ray Diagnostic Results #1: X-Ray ordered: L spine # of Views/Limited Vs Complete: 3 View Indication: Pain EP Interpretation: Yes Interpretation: no dislocation, no soft tissue swelling, no fractures Impression: No acute disease Electronically Signed by: Electronically signed by Joao Chao MD Other X-Ray Diagnostic Results #2: X-Ray ordered: Coccyx # of Views/Limited Vs Complete: 3 View Indication: Pain EP Interpretation: Yes Interpretation: no dislocation, no soft tissue swelling, no fractures Impression: No acute disease Electronically Signed by: Electronically signed by Joao Chao MD Last Vital Signs Date Time Temp Pulse Resp B/P (MAP) Pulse Ox O2 Delivery O2 Flow Rate FiO2 03/21/20 12:10 98.6 15 122/83 98 Room Air 03/21/20 10:22 93 Status: improved Disposition: HOME, SELF-CARE Condition: Stable Scripts Lidocaine Patch* (Lidoderm Patch*) 1 Each Adh..patch 1 PATCH TOPIC DAILY, #7 PATCH 0 Refills Patch(es) may remain in place for up to 12 hours in any 24-hour period. Prov: Joao Chao MD 03/21/20 Acetaminophen* (TYLENOL EXTRA STRENGTH*) 500 Mg Tablet 500 MG ORAL Q8H PRN for Prn Headache/Temp > 101, #30 TAB 0 Refills Prov: Joao Chao MD 03/21/20 Referrals: NON PHYSICIAN (PCP) [facility] Open 24 hour /7 days a week by Appointment Only [id number] [facility], [place] [address] Patient Instructions: Tailbone Injury, [id number] Joao Chao MD Mar 21, 2020 14:28
== END 2020-03-21 12:11 | disposition home or self-care (01) ==
LOC: EMR 10:38
DX: S30.0XXA Contusion of lower back and pelvis, initial encounter (principal); W01.0XXA Fall on same level from slipping, tripping and stumbling without subsequent striking against object, initial encounter; Y92.9 Unspecified place or not applicable; Z88.2 Allergy status to sulfonamides; E66.9 Obesity, unspecified; Z68.41 Body mass index [BMI] 40.0-44.9, adult
CPT/HCPCS: 72020; 72220; Z7502; 99284

== ENCOUNTER 2020-06-06 09:56 | Emergency (ER) | payer MEDICAID ==
[~2020-06-06] VITALS: Ht 175.3 cm; Wt 147.9 kg
[~2020-06-06 09:56] MED LIST changes: +LIDODERM700 M1 TOPIC
[2020-06-06] MEDS ORDERED: SODIUM CHLORIDE IVLG ONE (10:15)
[2020-06-06] MEDS ORDERED: cefTRIAXone 2 GM in NS 110 ML IV ONE (10:15)
[2020-06-06] MEDS ORDERED: Acetaminophen 500mg (ES) tab ORAL ONE (10:15)
[2020-06-06] MEDS ORDERED: Azithromycin 500 MG in NS 275 ML IV ONE (10:15)
[2020-06-06 10:35] VITALS: BP 115/83
--- NOTE | 2020-06-06 10:49 | Emergency Room Report ---
History of Present Illness General Chief Complaint: Fever Source: Patient Present Illness HPI 25-year-old -[place] female with no past medical history presents with chief complaint of fever for the last 2 days. States she was recently traveling in [place] 7 days ago. She denies any other symptoms at this time including headache, neck pain, vision changes, weakness, fatigue, dysuria, diarrhea, nausea, vomiting, chest pain, cough, hemoptysis, leg swelling, rash or other symptoms. Denies recent sick contacts, antibiotic use or hospitalization The patient's symptoms were gradual onset, severity was moderate, duration since 2 days. Quality: Fever Patient took Tylenol last night which alleviated her fever. She did not take any antipyretics this morning. Last menstrual period was 3 weeks ago. Last Pap smear was greater than 5 years ago Past medical history: Obesity Past surgical history: Denies Smoking: Denies Alcohol use: Occasional Drug use: Denies Review of systems: CONST: +fevers +chills, No night sweats PULMONARY: No productive cough, No shortness of breath CARDIAC: No chest pain, No palpitations GI: No vomiting, No diarrhea , No melena_or_BRBPR : No dysuria, No hematuria, No discharge NEURO: No new_focal_weakness_or_numbness, No confusion, No vision changes 14 point Review of Systems is otherwise negative except per HPI Physical Exam: GENERAL: Awake_alert_ nontoxic, no acute distress Spo2 97 % on RA -normal Febrile obese EYES: Extraocular muscles are intact. Conjunctivae clear. Lids without swelling ENT: External nose and ear normal_in_appearance. Oropharynx clear. Head_ atraumatic, Moist_oral_mucosa NECK: No JVD. No meningismus. No thyromegaly. Supple. Trachea midline RESP: Normal respiratory effort. Symmetric rise. No stridor. Clear_to_ auscultation_No_rales_No_wheezes CARDIAC: Tachycardic. And regular rhytm. No_significant pedal edema. ABDOMEN: Soft. Nondistended. Nontender_No_rebound_or_guarding. MSK: Normal muscle tone, without rigidity. Extremities without asymmetric deformity or swelling. SKIN: Warm and dry. No visible cyanosis or pallor NEUROLOGIC: Alert, oriented x3. Motor_and_sensation_grossly_intact. No truncal ataxia. Gait_normal Psych: Normal mood and affect, normal judgment and insight - COORDINATION OF CARE Case was discussed with: Patient Any labs and imaging that were ordered were interpreted as part of the medical decision making: Medical Decision Making/Plan: I educated her that she recently traveled to a COVID endemic area and is currently living in one therefore she is high risk, but patient is refusing COVID testing. Patient is refusing hospital admission. She initially refused blood work and IV fluids, but after we discussed the possibility of sepsis and severe bacterial infection she allowed us to continue work-up. DDx: includes COVID-19 / coronavirus infection, URI, bronchitis, viral syndrome , postnasal drip, versus less likely pneumonia, among others. The patient is nontoxic and well-appearing and has no significant shortness of breath. The patient exhibits no evidence of respiratory distress. Chest x-ray showed multifocal pneumonia, consistent with atypical viral pneumonia, likely COVID-19. No evidence of ENT emergency, airway patent, tolerating oral liquids and solids. No stridor or difficulty breathing. Tonsils within normal limits, no evidence of swelling, exudate or strep pharyngitis. No indication for empiric antibiotic treatment. Sublingual space soft. The patient was instructed to follow up with their physician and instructed to return if worsens, progressively worsening shortness of breath or difficulty breathing, persistent fever, chest pains or discomfort, inability to keep medication or fluids down with or without vomiting, or any other new, worsening or concerning symptoms Based on the patients presenting signs, symptoms, exam, and risk factors ( living in an area endemic for a coronavirus outbreak = [place]), the patient has been screened for coronavirus infection [and is suspected of having ] COVID 19 based on symptoms and xray and recent travel to an endemic region. Patient was nontoxic with benign vital signs after fluid repletion. She received azithro, rocephin and IVF in ED with relief of symptoms. Patient did not meet admission criteria and was stable for outpatient therapy. Patient was instructed to home quarantine for 14 days or until 3 days after their last fever, whichever is longer. Appropriate precautions were given. Strict return precautions given, including but limited to: Patient educated to notify a healthcare professional if they develop further symptoms that include chest pain, palpitations, significant SOB, fever, or other concerning symptoms. Discussed supportive care with rest, hydration, frequent handwashing and Tylenol and Motrin [id number] as needed for pain or fevers. Discussed strict return precautions. Verbal discharge with written instructions were given for COVID-19. Patient is instructed to follow up with their primary care provider in [1-2 days], or return to the ED for worsening symptoms. Return to ED precautions were given. Allergies: Coded Allergies: SULFA (SULFONAMIDE ANTIBIOTICS) (Unverified Allergy, Unknown, 11/09/14) COVID-19 Screening Contact w/high risk pt: No Recent Travel to affected area: No Experienced COVID-19 symptoms?: Yes COVID-19 Testing performed MARINE RIGGER: No Patient History Last Menstrual Period: 05/06/20 Nursing Documentation-[facility] Past Medical History: No Stated History Physical Exam Vital Signs Date Time Temp Pulse Resp B/P (MAP) Pulse Ox O2 Delivery O2 Flow Rate FiO2 06/06/20 09:58 100.8 121 17 121/89 (100) 100 Room Air Sp02 EP Interpretation: reviewed, normal Medical Decision Making Diagnostic Impression: Primary Impression: Fever Additional Impressions: Pneumonia Suspected 2019-nCoV infection EKG Diagnostic Results PA Scribe Text 12-lead EKG (interpreted by me) Time: 1016 Indication: Rhythm analysis Tracing visualized and Interpreted by me. Rhythm: Sinus tachycardia Rate: 104 bpm QTc: 444 Morphology: No_significant_ST_elevations_or_depressions, No STEMI Impression: Sinus tachycardia. Rhythm Strip Diag. Results Rhythm Strip Time: 12:32 EP Interpretation: yes Rate: 95 Rhythm: NSR, no PVC's, no ectopy Chest X-Ray Diagnostic Results Chest X-Ray Diagnostic Results : PA Scribe Text Chest X-Ray: Views: 1 view(s) Indication: FEVER Findings: Normal heart size. Mediastinum normal. Multifocal PNA Impression: Multifocal PNA The X-ray(s) were independently viewed and interpreted contemporaneously Electronically signed by Cris simpson DO Reevaluation Time: 12:32 Last Vital Signs Date Time Temp Pulse Resp B/P (MAP) Pulse Ox O2 Delivery O2 Flow Rate FiO2 06/06/20 09:58 100.8 121 17 121/89 (100) 100 Room Air Status: improved Disposition: HOME, SELF-CARE Admit Decision Time: 12:32 Condition: Stable Scripts Albuterol Sulfate* (Albuterol Sulfate Hfa*) 8.5 Gm Hfa.aer.ad 2 PUFF INH Q3H, #1 INH Prov: Cris Maxwell Lukasz 06/06/20 Azithromycin* (ZITHROMAX*) 250 Mg Tablet 250 MG ORAL BID, #6 TAB 0 Refills Take two tables once daily for 1 day, then one tablet once daily for 4 days. Prov: Mickey Maxwellruben Lazaro. 06/06/20 Acetaminophen* (TYLENOL EXTRA STRENGTH*) 500 Mg Tablet 500 MG ORAL BID for fever for 7 Days, #14 TAB Prov: Cris Maxwell Iveth. 06/06/20 Referrals: [facility] (PCP) Patient Instructions: Droplet Precautions, [id number], Fever, Adult, Easy-to- Read Additional Instructions: Your evaluation suggests that you are suffering from a viral infection producing a viral syndrome. Symptoms of a viral syndrome may include fever, sore throat, headache, body aches and pains, generalized weakness and fatigue, and runny nose. You do not show signs or symptoms suggestive of a serious or life threatening illness. This illness may be caused by a number of different viruses, including Influenza A or B or COVID-19. These viruses are highly contagious and spread rapidly from person to person via coughing and sneezing of the virus or by contaminated surface contact with nasal or other respiratory secretions. These viruses cause a similar combination of signs and symptoms which are typically much more severe than the common cold. Typically they begin with the rapid onset of fever, often high (over 102), body aches, fatigue, headache, and usually upper respiratory tract infections symptoms such as cough , runny nose, and sore throat. The illness typically lasts 7-10 days, with the fever and feelings of weakness and body aches usually lasting 3-5 days. Your own immune system fights off these infections. Only rarely do secondary bacterial infections occur (such as bacterial pneumonia) and can be serious. At this time your symptoms do not appear serious, however, there are limitations to online visits and if you are not improving you may need to be evaluated by a doctor in person and that doctor may need to do additional tests. INSTRUCTIONS: Illnesses such as yours typically resolve on their own with time however you must remember to stay hydrated and drink 2-3 times your normal fluid intake, as fever and your increased metabolism in fighting the infection uses more water. Fever control is important to help you feel better and to help prevent dehydration. Acetaminophen is an excellent choice for fever control and other symptoms (as long as you are not allergic to the medication). Rest is also important in helping your body fight this infection. Over the counter cough and decongestant medications are safe (as long as you dont have uncontrolled high blood pressure) and may help the cough and congestion slightly. As these viruses are highly contagious, good hand washing habits, and covering your cough and sneeze help prevent spread. Fever can be a sign of a serious infection and it is imperative that you go directly to an Emergency Department for serious symptoms such as weakness, confusion, significant shortness of breath, abdominal pain, or severe headache. Close follow up with a physician is important if you are not improving over the next few days or you experience worsening of your symptoms. Although it is impossible to know at this point if you have COVID-19 (the [place] virus), please quarantine yourself and anyone else that is residing with you for the longer of the following time periods: 14 days OR 3 days after the last of your symptoms has resolved CONTACT THE DOCTOR RIGHT AWAY if you develop worsening symptoms such as shortness of breath, chest pain, neck stiffness, confusion or any other new, worsening, or concerning symptoms. For emergencies contact 911 immediately. Cris Maxwell D.O. Jun 06, 2020 10:49
[2020-06-06 11:29] LABS: BASOPHILS % (AUTO) 1.6 % (0.0-2.0); EOSINOPHILS % (AUTO) 0.1 % (0.0-3.0); HEMOGLOBIN 15.1 G/DL (12.0-16.0); LYMPHOCYTES % (AUTO) 36.7 % (20.0-45.0); MEAN CORPUSCULAR VOLUME 82 FL (80-99); MONOCYTES % (AUTO) 7.1 % (1.0-10.0); NEUTROPHILS % (AUTO) 54.6 % (45.0-75.0); PLATELET COUNT 173 K/UL (150-450); RED BLOOD COUNT 5.72 M/UL (4.20-5.40); RED CELL DISTRIBUTION WIDTH 12.7 % (11.6-14.8); WHITE BLOOD COUNT 5.8 K/UL (4.8-10.8)
[2020-06-06 11:55] LABS: ANION GAP 11 mmol/L (5-15); BLOOD UREA NITROGEN 5 mg/dL (7-18); CALCIUM 8.6 MG/DL (8.5-10.1); CARBON DIOXIDE 23 MMOL/L (21-32); CHLORIDE 103 MMOL/L (98-107); POTASSIUM 3.9 MMOL/L (3.5-5.1); SODIUM 137 MMOL/L (136-145)
[2020-06-06 12:08] LABS: ALANINE AMINOTRANSFERASE 30 U/L (12-78); ALBUMIN 3.6 G/DL (3.4-5.0); ALBUMIN/GLOBULIN RATIO 0.7 (1.0-2.7); ALKALINE PHOSPHATASE 87 U/L (46-116); ASPARTATE AMINO TRANSFERASE 35 U/L (15-37); BILIRUBIN,TOTAL 0.4 MG/DL (0.2-1.0); CKMB < 0.5 NG/ML (0.0-3.6); CREATINE KINASE 114 U/L (26-308)
[2020-06-06 12:23] LABS: APPEARANCE,URINE SLIGHTLY CLOUDY; COLOR,URINE PALE YELLOW; PH,URINE 5 (4.5-8.0)
[2020-06-06 12:24] LABS: BILIRUBIN, URINE NEGATIVE (NEGATIVE); GLUCOSE, URINE (UA) NEGATIVE (NEGATIVE); KETONES,URINE NEGATIVE (NEGATIVE); LEUKOCYTE ESTERASE ,URINE 1+ (NEGATIVE); NITRITE,URINE NEGATIVE (NEGATIVE); PROTEIN,URINE 1+ (NEGATIVE); UROBILINOGEN,URINE NORMAL MG/DL (0.0-1.0)
--- NOTE | 2020-06-06 12:24 | Diagnostic Imaging Report ---
Indication: Cough Technique: One view of the chest Comparison: none Findings: Very questionable focal patchy infiltrates in the left midlung, left lung base, right lung base. The pleural spaces are clear. The heart size is normal. Impression: Questionable bilateral patchy focal infiltrates, if real could represent multifocal pneumonia. Correlate with clinical findings
[2020-06-06] MEDS ORDERED: ACETAMINOPHEN500 MG ORAL (12:35)
[2020-06-06] MEDS ORDERED: ALBUTEROL SULF8.5 G1 INH (12:35)
[2020-06-06] MEDS ORDERED: ZITHROMAX250 MG ORAL (12:35)
[2020-06-06 12:52] VITALS: BP 118/69
[2020-06-06 12:57] VITALS: BP 124/70
== END 2020-06-06 12:53 | disposition home or self-care (01) ==
LOC: EMR 10:19
DX: R50.9 Fever, unspecified (principal); J18.9 Pneumonia, unspecified organism; R00.0 Tachycardia, unspecified; Z88.2 Allergy status to sulfonamides
CPT/HCPCS: 36415; 71045; 80053; 81003; 82550; 82553; 83605; 84484; 84702; 85025; 87040; 87086; 93005; 96365; 96368; 96375; J0456; J0696; J2405; J7030; J7050; Z7502; 99284